=== PATIENT | female | born 1930 | race Caucasian/White ===

== ENCOUNTER → 2016-12-30 | Outpatient (CLI) | payer OTHER ==
[~2016-12-30] MED LIST: DTR/5 PO; DTRSR/10 PO; DULO-24 PO; METO25TA3 PO; MULT-506 PO; NAPROXEN SODIUM PO; PANT40TA PO; VITAMIN B12 PO
--- NOTE | 2016-12-30 10:47 | DIAGNOSTIC IMAGING REPORT ---
GI SERIES W/AIR ROUTINE CLINICAL HISTORY: DYSPHAGIA COMPARISON STUDY: FLUOROSCOPY TIME: 1.7 minutes. FINDINGS: The patient swallowed effervescent granules and barium. There is markedly disordered esophageal motility. No esophageal masses are visualized. No gastric masses or ulcerations are visualized. The duodenal bulb appears normal. Ligament Treitz is located in the normal anatomical position. IMPRESSION: Disordered esophageal motility. Otherwise unremarkable study for age. Electronically signed by: Bunny Winters M.D. 12/30/2016 10:45 AM Dictated Date/Time: 12/30/2016 10:44 AM
== END | disposition home or self-care (01) ==
LOC: C.RAD 09:55
PROVIDERS: ATTEND Internal Medicine Gastroenterology
DX: R13.10 Dysphagia, unspecified (principal); K22.4 Dyskinesia of esophagus

== ENCOUNTER → 2017-01-04 | Day surgery (SDC) | payer OTHER ==
[2017-01-03 07:37] VITALS: BMI 27.0
[~2017-01-04] VITALS: Ht 149.9 cm; Wt 61.4 kg
[~2017-01-04] MED LIST changes: -DTR/5 PO; +LIDOCAINE HCL 2% 2 ML VIAL (20MG/ML) ONE; +PROPOFOL IV EMULSION 10 MG/ML 20 ML VIAL IV ONE; +SODIUM CHLORIDE 0.9% 500ML 500 ML IV ONE
[2017-01-04 10:14] VITALS: Ht 149.9 cm; Wt 61.4 kg
[2017-01-04 10:28] VITALS: TEMP 36.9
--- NOTE | 2017-01-04 10:48 | Endo History and Physical ---
History & Physical Date of Service: January 04, 2017. Chief Complaint: dysphagia Referring Physician: loren Almaraz History of Present Illness Dysphagia, dysmotility on esophagram Past Surgical History Hx Cardiac Surgery: No Hx Internal Defibrillator: No Hx Pacemaker: No Hx Abdominal Surgery: Yes (SASHA BSO, [facility]) Hx of Implantable Prosthesis: No Hx Post-Op Nausea and Vomiting: No Hx Cancer Surgery: No Hx Thoracic Surgery: No Hx Orthopedic: Yes (RT TKA) Hx Urinary Tract Surgery: No Family History None Social History Smoking Status: Never Smoker Hx Substance Use: No Hx Alcohol Use: No Allergies Coded Allergies: No Known Allergies (Verified , 01/04/17) Current Medications Reported Home Medications Medications Dose Route/Sig Max Daily Dose Days Date Category Cymbalta (Duloxetine HCl) 20 Mg Cap 1 Cap PO QAM 30 01/03/17 Reported Oxybutynin Chloride ER (Oxybutynin Chloride) 10 Mg Tabcr 1 Tab PO QPM 01/03/17 Reported [Vitamin B12] 1 Tab PO QAM 02/25/16 Reported Multivitamin (Multivitamins) Tab 1 Tab PO QAM 02/25/16 Reported [Naproxen Sodium] 220 Mg PO DAILY PRN 02/25/16 Reported Protonix (Pantoprazole Sodium) 40 Mg Tab 40 Mg PO QAM 02/25/16 Reported Toprol-Xl (Metoprolol Succinate) 25 Mg Tabcr 0.5 Tab PO QAM 02/25/16 Reported Vital Signs Weight (Kilograms): 61.36 Height (Feet): 4 Height (Inches): 11 Date Time Temp Pulse Resp B/P Pulse Ox O2 Delivery O2 Flow Rate FiO2 01/04/17 10:28 36.9 77 20 122/59 96 Room Air Physical Exam General Appearance: WD/WN, no apparent distress Respiratory/Chest: Auscultation: breath sounds normal, no wheezing Cardiovascular: Heart Auscultation: RRR, no murmurs Abdomen: Inspection & Palpation: soft, no tenderness, guarding & rebound Assessment and Plan EGD with dilation performed.
--- NOTE | 2017-01-04 10:58 | Discharge Instructions ---
Endoscopy Patient Instructions Date / Procedure(s) Performed January 04, 2017. EGD Allergy Information Coded Allergies: No Known Allergies (Verified , 01/04/17) Discharge Date / Findings January 04, 2017. Tortuous esophagus. Dilation performed. Medication Instructions Restart Stopped Medication(s): Restart all medications today. Provider Instructions Activity Restrictions - No exercising or heavy lifting for 24 hours. - Do not drink alcohol the day of the procedure. - Do not drive a car or operate machinery until the day after the procedure. - Do not make any important decisions or sign important papers in 24 hours after the procedure. Following Day: - Return to full activity which may include returning to work/school. Diet Start your diet with liquids and light foods (jello, soup, juice, toast). Then eat your usual diet if not nauseated. Treatment For Common After Affects For mild abdominal pain, bloating, or excessive gas: - Rest - Eat lightly - Lie on right side Follow-Up Information Follow-up with loren Almaraz as scheduled Anesthesia Information What You Should Know You have had a procedure that required some medicine to reduce anxiety and discomfort. This treatment is called moderate sedation. After receiving the treatment, you may be sleepy, but you will be able to breathe on your own. The effects of the treatment may last for several hours. Follow these instructions along with Activity/Diet recommendations noted above: * Do NOT do anything where dizziness or clumsiness would be dangerous. * Rest quietly at home today, then you can be up and about tomorrow. * Have a responsible person stay with you the rest of today. * You may have had an I.V. today. If so, you may take the dressing off later today. Recommendations Call your doctor if: * Trouble breathing * Continuous vomiting for more than 24 hours * Temperature above 101 degrees * Severe abdominal pain or bloating * Pain not relieved by pain medicine ordered * There is increased drainage or redness from any incision * A large amount of rectal bleeding greater than 2-3 tablespoons. (If you had a polyp/s removed or have hemorrhoids, a small amount of blood - from the rectum is to be expected.) * You have any unanswered questions or concerns. IN THE EVENT OF A SERIOUS EMERGENCY, GO TO THE NEAREST EMERGENCY ROOM Your discharge instructions were prepared by provider Jose Solis. Patient Instructions Signature Page Vicki Lopez Patient (or Guardian) Signature/Date: I have read and understand the instructions given to me by my caregivers. Caregiver/RN/Doctor Signature/Date: The above-named patient and/or guardian has received patient instructions on this date. + Original Patient Signature Page (only) stays with chart. Please make copy for patient.
--- NOTE | 2017-01-04 11:02 | GI REPORT ---
Procedure Date: 01/04/2017 10:21 AM Procedure: Upper GI endoscopy Indications: Dysphagia Medicines: Monitored Anesthesia Care Complications: No immediate complications. Estimated blood loss: None. Estimated Blood Loss: Estimated blood loss: none. Procedure: Pre-Anesthesia Assessment: - Prior to the procedure, a History and Physical was performed, and patient medications, allergies and sensitivities were reviewed. The patient's tolerance of previous anesthesia was reviewed. - ASA Grade Assessment: III - A patient with severe systemic disease. After obtaining informed consent, the endoscope was passed under direct vision. Throughout the procedure, the patient's blood pressure, pulse, and oxygen saturations were monitored continuously. The Scope was introduced through the mouth, and advanced to the third part of duodenum. The upper GI endoscopy was accomplished with ease. The patient tolerated the procedure well. Findings: The examined esophagus was moderately tortuous. No endoscopic abnormality was evident in the esophagus to explain the patient's complaint of dysphagia. It was decided, however, to proceed with dilation of the entire esophagus. A guidewire was placed and the scope was withdrawn. Dilation was performed with an Qatari dilator with no resistance at 48 Fr and 54 Fr. The Z-line was regular and was found 35 cm from the incisors. The stomach was normal. The examined duodenum was normal. Impression: - Tortuous esophagus. - No endoscopic esophageal abnormality to explain patient's dysphagia. Esophagus dilated. Dilated. - Z-line regular, 35 cm from the incisors. - Normal stomach. - Normal examined duodenum. - No specimens collected. Recommendation: - Observe patient's clinical course. - Discharge patient to home (with escort). Jose Solis M.D. Jose Solis MD 01/04/2017 11:02:20 AM This report has been signed electronically. Note Initiated On: 01/04/2017 10:21 AM I attest to the content of the Intraoperative Record and orders documented therein, exceptions below
[2017-01-04 11:34] VITALS: BP 135/55; PULSE 76; O2SAT 95
--- NOTE | 2017-01-04 11:59 | Anesthesiology Progress Note ---
Anesthesia Post Op Note Date & Time January 04, 2017 at 11:59 Vital Signs Pain Intensity: 0 Vital Signs Past 12 Hours Date Time Temp Pulse Resp B/P Pulse Ox O2 Delivery O2 Flow Rate FiO2 01/04/17 11:34 76 18 135/55 95 Room Air 01/04/17 11:19 70 18 110/59 96 Room Air 01/04/17 11:04 74 20 97/47 96 Room Air 01/04/17 10:28 36.9 77 20 122/59 96 Room Air Notes Mental Status: alert / awake / arousable, participated in evaluation Pt Amnestic to Procedure: Yes Nausea / Vomiting: adequately controlled Pain: adequately controlled Airway Patency, RR, SpO2: stable & adequate BP & HR: stable & adequate Hydration State: stable & adequate Anesthetic Complications: no major complications apparent
== END | disposition home or self-care (01) ==
LOC: C.GI 10:00
PROVIDERS: ATTEND Internal Medicine Gastroenterology
DX: R13.10 Dysphagia, unspecified (principal); Z90.49 Acquired absence of other specified parts of digestive tract; Z96.651 Presence of right artificial knee joint; Z68.27 Body mass index [BMI] 27.0-27.9, adult